=== PATIENT | male | born 1960 | race Caucasian/White ===

== ENCOUNTER 2017-03-13 22:20 | Emergency (ER) | payer BC | END 2017-03-14 01:48 | disposition home or self-care (01) | LOC: D.ER 22:20 | DX: G43.909 Migraine, unspecified, not intractable, without status migrainosus (principal) ==

== ENCOUNTER 2017-09-25 13:37 | Emergency (ER) | payer BC ==
[~2017-09-25] VITALS: Ht 180.3 cm; Wt 88.6 kg
[2017-09-25 13:39] VITALS: Ht 180.3 cm; Wt 88.6 kg
[2017-09-25 14:02] LABS: BASOPHILS 0.3 % (0-2); EOSINOPHILS 1.2 % (0-7); HEMATOCRIT 45.6 % (42.0-54.0); HEMOGLOBIN 16.3 g/dL (13.5-17.5); IMMATURE GRANULOCYTES 0.2 % (0-5); LYMPHOCYTES 25.2 % (15-50); MCH 31.2 pg (26.0-34.0); MCHC 35.7 g/dL (31.0-37.0); MCV 87.2 fL (80.0-100.0); MEAN PLATELET VOLUME 10.3 fL (7.4-10.4); MONOCYTES 10.4 % (2-11); NEUTROPHILS 62.7 % (40-80); PLATELET COUNT 200 10x3/uL (130-400); RBC 5.23 10x6/uL (4.20-6.10); RDW 12.6 % (11.5-14.5)
[2017-09-25 14:21] LABS: ALBUMIN 4.1 g/dL (3.4-5.0); ALKALINE PHOSPHATASE 82 U/L (46-116); ALT (SGPT) 43 U/L (10-68); BILIRUBIN - TOTAL 1.02 mg/dL (0.2-1.3); CALC OSMOLALITY 273 mosm/kg (275-300); CALCIUM 8.8 mg/dL (8.5-10.1); CHLORIDE - SERUM 102 mmol/L (98-107); CREATININE - SERUM 1.1 mg/dL (0.6-1.3); GLUCOSE 93 mg/dL (74-106); POTASSIUM - SERUM 3.6 mmol/L (3.5-5.1); SODIUM 138 mmol/L (136-145); UREA NITROGEN 7 mg/dL (7-18); eGFR NON AFRICAN AMERICAN 73 mL/min (90-120)
[2017-09-25 14:36] LABS: CKMB 0.5 U/L (0.0-3.6); CREATINE KINASE 83 UL (21-232); TROPONIN-I < 0.017 ng/mL (0.000-0.060)
[2017-09-25 17:34] VITALS: BP 140/83
== END 2017-09-25 17:35 | disposition home or self-care (01) ==
LOC: D.ER 13:37
PROVIDERS: Emergency Medicine
DX: R07.89 Other chest pain (principal); R06.02 Shortness of breath

== ENCOUNTER 2019-05-03 07:56 | Day surgery (SDC) | payer OTHER ==
[~2019-05-03] VITALS: Ht 180.3 cm; Wt 83.9 kg
[~2019-05-03 07:56] MED LIST: IMITREX50 MG PO
[2019-05-03 08:23] VITALS: BP 124/84; Ht 180.3 cm; Wt 83.9 kg
[2019-05-03] MEDS ORDERED: PERCOCET 5-3251 TAB PO (10:20)
[2019-05-03] MEDS ORDERED: KEFLEX500 MG PO (10:20)
--- NOTE | 2019-05-04 11:21 | OP ---
PATIENT NAME: BEN SIU MEDICAL RECORD: [id number] LOCATION:[facility] ADMISSION DATE: SURGEON: EDY CALHOUN DO DATE OF OPERATION: 05/03/2019 PROCEDURE PERFORMED: Right thumb ulnar collateral ligament repair. PREOPERATIVE DIAGNOSIS: Right thumb ulnar collateral ligament tear. POSTOPERATIVE DIAGNOSIS: Right thumb ulnar collateral ligament tear. INDICATIONS: Mr. 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 He fell in his backyard hyperextending his right thumb, falling backwards. This was several months ago. He said he had continued pain and even got to the point where he could not hold his drum stick and he is having to tape it to his hand. 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 I informed him of the risks including infection, bleeding, damage to the ulnar side of that digital nerve and he was okay with that, aware of those risks as well as a failure, need for further surgery, continued pain and loosening of the repair and he signed a consent. SURGEON: Edy Calhoun DO DESCRIPTION OF PROCEDURE: The patient was taken to the operative suite, laid in supine position, given general anesthetic and LMA was placed. He was then given 2 grams of Ancef. The right upper extremity was then prepped and draped in sterile fashion. Timeout was performed, everyone was in agreeance with the correct side, site, patient and procedure. I then began by making an incision over the ulnar aspect of the thumb, on the dorsal side, almost mid axial. Careful dissection was made down the adductor aponeurosis, was incised, and then the wound was left with the ulnar collateral ligament had adhered to the capsule. I spent some time dissecting this out. I then used the jugular 1.0 JuggerKnot mini anchor. I drilled the hole in the proximal phalanx of the thumb and inserted it. Upon testing it came out, we put another one in, this held, and then did a repair using a horizontal mattress stitch and a Oscar-Claude securing it nicely to the proximal phalanx. This was very stable with stress and was not stiff. I did flex his MCP joint and he was able to touch over the metacarpophalangeal joint of the 5th metacarpophalangeal metacarpal. Then repaired the adductor aponeurosis with 3-0 Vicryl in a simple fashion and injected the thumb doing a digital block with 0.25% Marcaine with epinephrine and 10 mL of it around the site and then at the base of the thumb. A tourniquet was then let down and Raffaele Lazar, certified medication technician, closed the skin with 3-0 Vicryl in an inverted interrupted fashion, 4-0 Monocryl ran on the skin subcuticularly, placed Steri-Strips, Adaptic, 4 x 4, cast padding and a thumb spica splint nicely secured into place with Jayesh wrap. He was then awakened and taken to recovery in stable condition. BLOOD LOSS: Minimal. COMPLICATIONS: None. Tourniquet was used and it was inflated to 250 mmHg and it was up for 34 minutes OPERATIVE REPORT [id number] BEN SIU upon letting it down. TRANSINT:[id number] Voice Confirmation ID: [id number] DOCUMENT ID: [id number] EDY CALHOUN DO at 1121 CC: [id number] DICTATION DATE: 05/03/19 1018 HAND TIRE TRIMMER: 05/03/19 1605 [facility] 05/03/19 [facility] [address] [place] [address]
== END 2019-05-03 11:56 | disposition home or self-care (01) ==
LOC: D.OPS 07:56 → D.PAN 10:15 → D.OPS 10:30
PROVIDERS: ATTEND Orthopaedic Surgery
DX: S53.31XA Traumatic rupture of right ulnar collateral ligament, initial encounter (principal); X58.XXXA Exposure to other specified factors, initial encounter